=== PATIENT | female | born 1950 | race Asian ===

== ENCOUNTER → 2024-02-25 08:09 | Outpatient (REF) | payer OTHER, SELFPAY | LOC: DHCBC/DCA 08:09 | PROVIDERS: ATTENDING PHYSICIAN Internal Medicine Cardiovascular Disease | DX: I25.118 Atherosclerotic heart disease of native coronary artery with other forms of angina pectoris (principal); Z98.61 Coronary angioplasty status; I10 Essential (primary) hypertension; E78.2 Mixed hyperlipidemia; E11.69 Type 2 diabetes mellitus with other specified complication | CPT/HCPCS: 78452; 93017; A9500; J2785 ==